=== PATIENT | female | born 1975 | race Caucasian/White ===

== ENCOUNTER 2021-10-05 09:16 | Outpatient (REF) | payer OTHER, SELFPAY ==
[2021-10-05 11:11] LABS: Alanine Aminotransferase 11 U/L (0-31); Albumin Level 4.2 g/dL (3.5-5.0); Alkaline Phosphatase 52 U/L (39-117); Anion Gap 11 (12-20); Aspartate Amino Transferase 15 U/L (5-31); Bilirubin Total 0.8 mg/dL (0.0-1.0); Blood Urea Nitrogen 10 mg/dL (9-16); Calcium 9.6 mg/dL (8.4-10.2); Carbon Dioxide 26 mmol/L (22-29); Chloride 104 mmol/L (96-108); Cholesterol 182 mg/dL; Estimated Glomerular Filt Rate > 60; Glucose Fasting 85 mg/dL (60-99); HDL Cholesterol 70 mg/dL; LDL Cholesterol Calculated 88 mg/dl; Potassium 4.5 mmol/L (3.3-5.1); Sodium 136 mmol/L (135-145); Total Protein 7.5 g/dL (6.5-8.0); Triglycerides 123 mg/dL
[2021-10-05 11:20] LABS: Free T4 (Free Thyroxine) 0.74 ng/dL (0.71-1.85)
[2021-10-07 10:11] LABS: Thyroglobulin Antibodies >1000 IU/mL (< or = 1); Thyroid Peroxidase Antibodies 887 IU/mL (<9)
== END 2021-10-05 09:17 | disposition home or self-care (01) ==
LOC: HO.LAB 09:16
PROVIDERS: PCP Internal Medicine; Visit Provider Internal Medicine
DX: Z00.00 Encounter for general adult medical examination without abnormal findings (principal); E03.9 Hypothyroidism, unspecified; E78.5 Hyperlipidemia, unspecified
CPT/HCPCS: 36415; 80053; 80061; 84439; 84443; 86376; 86800

== ENCOUNTER 2022-07-17 15:38 | Outpatient (REF) | payer OTHER, SELFPAY ==
--- NOTE | ~2022-07-17 | MM_ITS ---
EXAMINATION: MM SCREENING DIGITAL BREAST TOMOSYNTHESIS, BILATERAL CLINICAL INFORMATION: Screening. Asymptomatic. The lifetime risk of breast cancer based on the Tyrer-Cuzick Model is 12.8%. COMPARISON: Mammography: August 12, 2019 and studies dating back to July 10, 2017 TECHNIQUE: Digital breast tomosynthesis is performed in both the craniocaudal and mediolateral oblique views along with computer-aided detection (CAD). Synthesized 2D images are generated from the tomosynthesis. FINDINGS: The breasts are extremely dense, which lowers the sensitivity of mammography (ACR BI-RADS breast composition Category d). There are no significant masses, abnormal calcifications, or other abnormalities. MM/MM tomosynthesis screening BI IMPRESSION: No significant changes from prior exam. ASSESSMENT: BI-RADS 1: Negative RECOMMENDATION: Routine annual mammography screening. This patient's information was entered into a reminder system with a target due date for their next mammogram.
== END 2022-07-17 15:39 | disposition home or self-care (01) ==
LOC: HO.MAMMO 15:38
PROVIDERS: PCP Internal Medicine; Visit Provider Internal Medicine
DX: Z12.31 Encounter for screening mammogram for malignant neoplasm of breast (principal)
CPT/HCPCS: 77063; 77067

== ENCOUNTER → 2023-07-24 14:00 | Outpatient (BNV) | payer OTHER, SELFPAY | PROVIDERS: PCP Internal Medicine; Visit Provider Radiology Diagnostic Radiology | DX: Z12.31 Encounter for screening mammogram for malignant neoplasm of breast (principal) | CPT/HCPCS: 77063; 77067 ==

== ENCOUNTER 2023-07-24 14:30 | Outpatient (REF) | payer OTHER, SELFPAY ==
--- NOTE | ~2023-07-24 | MM_ITS ---
EXAMINATION: MM SCREENING DIGITAL BREAST TOMOSYNTHESIS, BILATERAL CLINICAL INFORMATION: Screening. Asymptomatic. COMPARISON: Mammography: This study is compared with prior exams dating back to 2019. TECHNIQUE: Digital breast tomosynthesis is performed in both the craniocaudal and mediolateral oblique views along with computer-aided detection (CAD). Synthesized 2D images are generated from the tomosynthesis. FINDINGS: The breasts are heterogeneously dense, which may obscure small masses (ACR BI-RADS breast composition Category c). There are grouped calcifications in the upper inner quadrant of the left breast for which additional mammographic imaging magnification is advised. In the right breast, there are no significant masses, abnormal calcifications, or other abnormalities. MM/MM tomosynthesis screening BI IMPRESSION: Left breast calcifications warrant additional mammographic imaging magnification. Mammographic signs of malignancy right breast. ASSESSMENT: BI-RADS BI-RADS 0 - Incomplete: Needs additional Imaging. RECOMMENDATION: Additional views of the left breast. Radiology department staff will contact the patient for additional imaging. Additional Imaging required This examination should not preclude the clinical evaluation of a suspicious palpable abnormality. This patient's information was entered into a reminder system with a target due date for their next mammogram.
[2023-07-24 16:35] LABS: Free T4 (Free Thyroxine) 0.79 ng/dL (0.71-1.85); Thyroid Stimulating Hormone 10.41 uIU/mL (0.32-4.0)
[2023-07-26 01:59] LABS: Triiodothyronine T3 Free 3.4 pg/mL (2.3-4.2)
[2023-07-26 02:58] LABS: Thyroglobulin Antibodies >1000 IU/mL (< or = 1); Thyroid Peroxidase Antibodies >900 IU/mL (<9)
== END 2023-07-24 14:31 | disposition home or self-care (01) ==
LOC: HO.MAMMO 14:30
PROVIDERS: PCP Internal Medicine; Visit Provider Internal Medicine
DX: Z12.31 Encounter for screening mammogram for malignant neoplasm of breast (principal); E03.9 Hypothyroidism, unspecified
CPT/HCPCS: 36415; 77063; 77067; 84439; 84443; 84481; 86376; 86800

== ENCOUNTER → 2023-08-12 08:30 | Outpatient (BNV) | payer OTHER, SELFPAY | PROVIDERS: PCP Internal Medicine; Visit Provider Radiology Diagnostic Radiology | DX: R92.1 Mammographic calcification found on diagnostic imaging of breast (principal) | CPT/HCPCS: 77065 ==

== ENCOUNTER 2023-08-12 08:42 | Outpatient (REF) | payer OTHER, SELFPAY | END 2023-08-12 08:43 | disposition home or self-care (01) | LOC: HO.MAMMO 08:42 | PROVIDERS: PCP Internal Medicine; Visit Provider Internal Medicine | DX: R92.1 Mammographic calcification found on diagnostic imaging of breast (principal) | CPT/HCPCS: 77065 ==

== ENCOUNTER 2023-08-13 13:46 | Outpatient (AMB) | payer OTHER, SELFPAY ==
--- NOTE | 2023-08-13 13:47 | MHC.OFFVIS ---
Intake Vital Signs 08/13/23 13:54 Height 5 ft 4 in Weight 141 lb BMI 24.2 BP 120/77 Blood Pressure Location Rt brachial Position Sitting Pulse 72 Intake Visit Reasons: left breast calcification Intake Note: Patient referred for Lt breast calcifications. Bx scheduled at breast ctr tomorrow 08-14-23. Patient c/o: denies lumps, rash, discomfort. 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 Patient has no breast symptoms or complaints. She does self-breast exams. Negative family history of breast cancer. Chart was reviewed patient [facility] Medical History Hypothyroidism Physical exam Surgical History H/O excision of dermoid cyst History of appendectomy History of Family History Father No problems noted. Mother Depression Mental health disorder Family/Other Substance use disorder Social History Housing: House Alcohol intake: current Alcohol intake frequency: a few times a week Alcohol type: other Patient Tobacco Use Status: Former Tobacco user Tobacco use type: Cigarette e-Cigarette/Vaping Use: Never Used Second Hand Smoke Exposure: No service: No Current occupational status: employed Current occupational exposures/hazards: No Physical Exam Vital Signs: Last Vital Signs Pulse 72 08/13/23 13:54 BP 120/77 08/13/23 13:54 BMI result Body Mass Index 24.2 Chest Other: Chest breath sounds bilaterally. Bilateral breast exam demonstrates no obvious mass, discharge, periclavicular axillary or cervical adenopathy, or skin changes. Assessment & Plan Assessment & Plan (1) Microcalcification of left breast on mammogram: Code(s): R92.0 - Mammographic microcalcification found on diagnostic imaging of breast Plan Patient is scheduled for stereotactic biopsy left breast microcalcifications for tomorrow. She will see me few days time to discuss the results. All questions answered. Orders: Orders MM stereotactic biopsy LT 1 Day R92.0 - Mammographic microcalcification found on diagnostic imaging of breast Coding Level of Care Code New Pt Level 4 (56109) Diagnoses Microcalcification of left breast on mammogram R92.0
[2023-08-13 13:54] VITALS: BP 120/77; PULSE 72; BMI 24.2
== END 2023-08-13 14:15 | disposition home or self-care (01) ==
PROVIDERS: PCP Internal Medicine; Visit Provider Surgery
DX: R92.0 Mammographic microcalcification found on diagnostic imaging of breast (principal)
CPT/HCPCS: 99204

== ENCOUNTER → 2023-08-13 13:46 | Outpatient (BNVA) | payer OTHER, SELFPAY | PROVIDERS: PCP Internal Medicine; Visit Provider Surgery ==

== ENCOUNTER 2023-08-14 07:49 | Outpatient (REF) | payer OTHER, SELFPAY ==
--- NOTE | ~2023-08-14 | MM_ITS ---
EXAMINATION: STEREOTACTIC TOMOSYNTHESIS-GUIDED VACUUM-ASSISTED BREAST BIOPSY, LEFT SPECIMEN RADIOGRAPH, LEFT POST PROCEDURE DIGITAL MAMMOGRAM, LEFT CLINICAL INFORMATION: Suspicious grouped calcifications, indeterminate in nature, upper inner left breast, posterior one third, for which biopsy was recommended. Patient has no history of high risk. COMPARISON: Mammography: 08/12/2023, 07/24/2023, 07/17/2022, 08/12/2019, and dating back to 2017. TECHNIQUE/PROCEDURE: Informed consent was obtained from the patient after discussion of the benefits, risks, and alternatives to biopsy today. Patient appeared to understand. Gave opportunity for questions. Patient signed consent form. BIOPSY TABLE: Transgenomic Affirm Prone Biopsy System. LESION: Grouped calcifications, indeterminate, upper inner right breast, posterior one third. LOCAL ANESTHESIA: 3 mL 1% lidocaine; 8 mL 1% lidocaine with epinephrine. DERMATOTOMY: Single 2 mm skin sariah dermatotomy performed. NEEDLE: [employer] Eviva 9-gauge vacuum assisted core biopsy device. APPROACH: medial lateral. TARGETING: Combination of digital breast tomosynthesis and stereotactic digital mammography used for targeting. CORES: 6. CLIP: Top hat-shaped. SPECIMEN RADIOGRAPH: Specimen radiograph is taken in separate room using digital mammography. The majority of the index calcifications are in the excised cores, if not all. POST PROCEDURE UNILATERAL DIGITAL MAMMOGRAM: The post biopsy mammogram is performed in separate room using separate digital mammography equipment from the biopsy procedure. CC and ML views are obtained. The breasts are heterogeneously dense, which may obscure small masses (breast composition category: c). The clip marker is in expected and accurate position. The calcifications are markedly decreased at the biopsy site. No hematoma. The patient tolerated the procedure well. No immediate complications. Home instructions reviewed with the patient. Final pathology results are pending. MM/MM stereotactic biopsy LT IMPRESSION: 1. Digital tomosynthesis-guided core biopsy left breast calcifications with clip placement. 2. Specimen radiograph taken and post procedure mammogram. There is satisfactory and accurate positioning of the biopsy clip. No hematoma evident. 3. Final pathology results pending. An addendum report will be issued.
== END 2023-08-14 07:50 | disposition home or self-care (01) ==
LOC: HO.MAMMO 07:49
PROVIDERS: PCP Internal Medicine; Visit Provider Surgery
DX: R92.0 Mammographic microcalcification found on diagnostic imaging of breast (principal)
CPT/HCPCS: 19081; 88305; A4648

== ENCOUNTER → 2023-08-14 08:00 | Outpatient (BNV) | payer OTHER, SELFPAY | PROVIDERS: PCP Internal Medicine; Visit Provider Radiology Diagnostic Radiology | DX: D24.9 Benign neoplasm of unspecified breast (principal); R92.1 Mammographic calcification found on diagnostic imaging of breast | CPT/HCPCS: 19081 ==

== ENCOUNTER 2023-08-21 13:36 | Outpatient (AMB) | payer OTHER, SELFPAY ==
[2023-08-21 13:44] VITALS: BP 121/73; PULSE 81; BMI 24.0
--- NOTE | 2023-08-21 13:44 | A.OFFVIS_ITS ---
Intake Vital Signs 08/21/23 13:44 Height 5 ft 4 in Weight 140 lb BMI 24.0 BP 121/73 Blood Pressure Location Rt brachial Position Sitting Pulse 81 Intake Visit Reasons: left breast calcification, biopsy results Intake Note: Patient here to discuss Lt breast stereo bx on 08-14-23. Reports incision healing well. Patient c/o: bruising. 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 She has no wound issues or complaints. Pathology is benign. [facility] Medical History Hypothyroidism Physical exam Surgical History H/O excision of dermoid cyst History of appendectomy History of Family History Father No problems noted. Mother Depression Mental health disorder Family/Other Substance use disorder Social History Housing: House Alcohol intake: current Alcohol intake frequency: a few times a week Alcohol type: other Patient Tobacco Use Status: Former Tobacco user Tobacco use type: Cigarette e-Cigarette/Vaping Use: Never Used Second Hand Smoke Exposure: No service: No Current occupational status: employed Current occupational exposures/hazards: No Physical Exam Vital Signs: Last Vital Signs Pulse 81 08/21/23 13:44 BP 121/73 08/21/23 13:44 BMI result Body Mass Index 24.0 Chest Other: Mild ecchymosis of biopsy site but otherwise healing well. Assessment & Plan Assessment & Plan (1) Status post left breast biopsy: Code(s): Z98.890 - Other specified postprocedural states Plan: Current plan is to arrange for six-month post biopsy mammograms and see the patient after this. She is encouraged to do self-breast exams. All questions answered. Orders: Orders MM screening mammo BI 6 Months Z98.890 - Other specified postprocedural states Coding Level of Care Code Est Pt Level 4 (31295) Diagnoses Status post left breast biopsy Z98.890
== END 2023-08-21 13:49 | disposition home or self-care (01) ==
PROVIDERS: PCP Internal Medicine; Visit Provider Surgery
DX: Z98.890 Other specified postprocedural states (principal)
CPT/HCPCS: 99214

== ENCOUNTER → 2023-08-21 13:36 | Outpatient (BNVA) | payer OTHER, SELFPAY | PROVIDERS: PCP Internal Medicine; Visit Provider Surgery ==

== ENCOUNTER 2023-08-22 08:04 | Outpatient (AMB) | payer OTHER, SELFPAY ==
[2023-08-22 08:08] VITALS: BP 120/82; BMI 23.5
--- NOTE | 2023-08-22 08:08 | A.OFFPC_ITS ---
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: No Accompanied by: Self / Same As Patient Allergies No Known Allergies [No Known Allergies*] Allergy (Verified 08/22/23 08:44) Medication List - Last Reconciled 08/22/23 by Missy Quick MD levothyroxine 50 mcg PO DAILY 90 days Tobacco use date assessed: 08/22/23 Dental Screening Dental Screen Date: 08/22/23 Did you have a dental visit in the last 12 months?: No Did you have a dental problem in the last 6 months where you did not have access to dental care?: No Was dental information given to patient?: Patient has dentist HPI HPI Comments History of Present Illness Details This is a 48-year-old female with hypothyroidism that comes today complaining of loss of attention when she is sitting down. She will benefit from having a standing desk at work to keep her awake and more active. Forms were fill for reasonable accommodation at work. Last TSH was elevated and levothyroxine was increased. TSH will be repeated 6 weeks after. No chest pain or shortness of breath. [facility], [facility] Medical History (Updated 08/22/23 @ 09:59 by Missy Quick MD) Hypothyroidism Physical exam Surgical History (Updated 08/22/23 @ 08:13 by ZORAN Elias) History of breast biopsy H/O excision of dermoid cyst History of appendectomy History of Family History Father No problems noted. Mother Depression Mental health disorder Family/Other Substance use disorder Social History Housing: House Alcohol intake: current Alcohol intake frequency: a few times a week Alcohol type: other Patient Tobacco Use Status: Former Tobacco user Tobacco use type: Cigarette e-Cigarette/Vaping Use: Never Used Second Hand Smoke Exposure: No service: No Current occupational status: employed Current occupational exposures/hazards: No Cognitive needs: No Hearing needs: No Vision needs: No Questionnaire PHQ-9 Over the last 2 weeks, how often have you been bothered by any of the following problems? 1. Little interest or pleasure in doing things: not at all 2. Feeling down, depressed, or hopeless: not at all 3. Trouble falling or staying asleep, or sleeping too much: nearly every day 4. Feeling tired or having little energy: nearly every day 5. Poor appetite or overeating: more than half the days 6. Feeling bad about yourself - or that you are a failure or have let yourself or your family down: several days 7. Trouble concentrating on things, such as reading the newspaper or watching television: nearly every day 8. Moving or speaking so slowly that other people could have noticed. Or the opposite - being so fidgety or restless that you have been moving around a lot more than usual: several days 9. Thoughts that you would be better off or of hurting yourself in some way: not at all Total score: 13 Depression Screening Interpretation: Positive Depression Screening Follow-up: Existing condition Depression Screening Done: Yes 88258 - PHQ-9 Billing: Yes Source: Developed by Drs. Marco Escamilla, Cynthia Flores, Gab Plasencia and colleagues, with an educational chuckie from [employer]. Thrive Questionnaire Date Thrive assessed: 08/22/23 I am a: Patient What is your living situation today?: I have a steady place to live Within the past 12 months, did the food you bought not last and you didn't have the money to get more?: Never true Within the past 12 months, did you worry whether your food would run out before you got money to buy more?: Never true Do you have trouble paying for medicines?: No Do you have trouble getting transportation to medical appointments?: No Do you have trouble paying your heating and electricity bill?: No Do you have trouble taking care of your child, family member or friend?: No Do you have trouble with day-to-day activities such as bathing, preparing meals, shopping, managing finances, etc.?: No Are you currently unemployed and looking for a job?: No Are you interested in more education?: No Please select the resources that you would like help with: None Currently or been in a relationship where the following occur: no concerns reported AUDIT C Alcohol Use Questionnaire (AUDIT-C) 1. How often do you have a drink containing alcohol?: Monthly or less 2. How many drinks containing alcohol do you have on a typical day when you are drinking?: 1 or 2 3. How often do you have six or more drinks on one occasion?: Never Total Score: 1 ANTON-7 AMB Questionnaire ANTON-7 Date ANTON - 7 assessed: 08/22/23 Feeling nervous, anxious, or on edge: 1 = Several days Not being able to stop or control worryin = Several days Worrying too much about different things: 3 = Nearly every day Trouble relaxin = Nearly every day Being so restless that it is hard to sit still: 3 = Nearly every day Becoming easily annoyed or irritable: 1 = Several days Feeling afraid as if something awful might happen: 1 = Several days Total ANTON-7 score (0-4 normal; 5-9 mild; 10-14 moderate; 15-21 severe): 13 Source: Developed by Drs. Marco Escamilla, Cynthia Flores, Gab Plasencia and colleagues, with an educational chuckie from [employer]. ANTON-7 Assessment Billing ANTON-7 Assessment Tool: ANTON-7 Assessment 07865 Review of Systems Const All systems reviewed & are unremarkable except as noted in HPI and below Eyes Reports no additional complaints, Denies change in vision and Denies other visua l disturbances Card Denies chest pain at rest, Denies chest pain with activity, Denies edema, Denies irregular heart rhythm, Denies claudication, Denies dyspnea, Denies dyspnea on exertion, Denies orthopnea, Denies paroxysmal nocturnal dyspnea and Denies slow heart rate Resp Denies cough, Denies dyspnea and Denies dyspnea on exertion GI Denies abdominal pain, Denies change in bowel habits, Denies excessive flatus, Denies nausea and Denies vomiting Denies urinary incontinence, Denies urinary hesitancy and Denies urinary urgency Musc Denies atrophy, Denies deformity and Denies limited range of motion Skin/Breast Denies bleeding lesions, Denies changing lesions and Denies rash Physical exam (Primary Care) Vital Signs: Last Vital Signs BP 120/82 08/22/23 08:08 BMI result Body Mass Index 23.5 Tobacco/Smoking Status: Tobacco use Status Tobacco use date assessed 08/22/23 08/22/23 08:16 Patient Tobacco Use Status Former Tobacco user 08/22/23 08:16 Tobacco use type Cigarette 08/22/23 08:16 e-Cigarette/Vaping Use Never Used 08/22/23 08:16 PHQ-9: PHQ-9 Score PHQ-9: Total score 13 08/22/23 09:34 Depression Screening Interpretation: Positive Depression Screening Follow-up: Existing condition Thrive Assessment: Date of Thrive Assessment Date Thrive assessed 08/22/23 08/22/23 08:16 Currently or been in a relationship where the following occur: no concerns reported Eyes General: appearance normal, both eyes and all related structures Eyelids: Yes eyelids normal Conjunctivae: conjunctivae normal Neck Neck: Yes normal visual inspection and Yes supple Resp Effort & Inspection: normal respiratory effort Auscultation: clear to auscultation bilaterally Cardio Jugular venous distension: no JVD Rate: regular rate Rhythm: regular rhythm Heart sounds: S1 normal heart sound present and S2 normal heart sound present Extrem General: Yes full ROM Office Procedures Flu Questionnaire Does the patient have a severe egg allergy?: No Immunizations flu vacc [id number] 6mos up(PF) 60 mcg(15 mcgx4)/0.5 mL IM syringe Performing Provider: Missy Quick MD [facility] Documented (not given) by: ZORAN Elias on 08/22/23 09:34 Reason Not Given: Not Given Assessment and Plan Assessment & Plan (1) Hypothyroidism: Code(s): E03.9 - Hypothyroidism, unspecified Plan: Continue levothyroxine. Repeat TSH. (2) Attention deficit: Code(s): R41.840 - Attention and concentration deficit Plan: Will benefit from standing desk at work. Orders: Orders 2 Influenza [id number] Immunization Today Z23 - Encounter for immunization Coding Level of Care Code Est Pt Level 3 (52940) Diagnoses Hypothyroidism E03.9 Attention deficit R41.840 Additional Codes ANTON-7 Assessment Billing - ANTON-7 Assessment Tool: ANTON-7 Assessment 94463 ([id number]) Time Spent (min) 17
== END 2023-08-22 08:59 | disposition home or self-care (01) ==
PROVIDERS: PCP Internal Medicine; Visit Provider Internal Medicine
DX: E03.9 Hypothyroidism, unspecified (principal); R41.840 Attention and concentration deficit
CPT/HCPCS: 99213

== ENCOUNTER 2023-09-16 13:55 | Outpatient (REF) | payer OTHER, SELFPAY ==
[2023-09-16 16:36] LABS: Thyroid Stimulating Hormone 13.18 uIU/mL (0.32-4.0)
== END 2023-09-16 13:56 | disposition home or self-care (01) ==
LOC: HO.LAB 13:55
PROVIDERS: PCP Internal Medicine; Visit Provider Internal Medicine
DX: E03.9 Hypothyroidism, unspecified (principal)
CPT/HCPCS: 36415; 84443